=== PATIENT | male | born 1980 | race Caucasian/White ===

== ENCOUNTER 2017-11-12 23:37 | Emergency (ER) | payer OTHER ==
[~2017-11-12] VITALS: Ht 172.7 cm; Wt 71.7 kg
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
[2017-11-13] MEDS ORDERED: LIDOCAINE HCL 2% 20 ML VIAL TP ONE (00:15)
[2017-11-13] MEDS ORDERED: SODIUM BICARBONATE 4.2 % (NEUT) 5 ML VIAL TP ONE (00:15)
[2017-11-13] MEDS ORDERED: HYDROCODONE/APAP 5-325MG TABLET PO ONE (00:15)
[2017-11-13] MEDS ORDERED: NEOMY/BACITRA/POLYMYXIN B OINT UD PACKET TP ONE ×2 (00:15→00:33)
[2017-11-13] MEDS ORDERED: TDAP DIPH,PERTUSS,TET VAC/PF 0.5 ML DISP.SYRIN IM ONE ×2 (00:15→00:31)
--- NOTE | 2017-11-13 00:15 | NUR ---
Dr. Tay at bedside for MSE.
[2017-11-13] MEDS ORDERED: SODIUM BICARBONATE 4.2 % (NEUT) 5 ML VIAL ONE (00:32)
[2017-11-13] MEDS ORDERED: HYDROCODONE/APAP 5-325MG TABLET ONE (00:32)
[2017-11-13] MEDS ORDERED: LIDOCAINE HCL 2% 20 ML VIAL ONE (00:33)
--- NOTE | 2017-11-13 01:10 | NUR ---
Xray at bedside.
[2017-11-13] MEDS ORDERED: SULFAMETH/TRIMETH 800/160 MG TABLET PO ONE (02:30)
[2017-11-13] MEDS ORDERED: SULFAMETH/TRIMETH 800/160 MG TABLET ONE (02:36)
--- NOTE | 2017-11-13 03:00 | NUR ---
Patient discharged to home in stable conditon. Written and verbal after care instructions given. Patient verbalizes understanding of instructions. Pt ambulated out of ER with steady gait, no acute signs of distress, VSS, all belongings taken.
[2017-11-13 03:14] VITALS: BP 142/89
== END 2017-11-13 03:00 | disposition home or self-care (01) ==
LOC: ER 23:40 → EDSEX 23:40 → ER 11-13 03:00
DX: S51.812A Laceration without foreign body of left forearm, initial encounter (principal); W22.8XXA Striking against or struck by other objects, initial encounter; Y93.89 Activity, other specified; Y92.89 Other specified places as the place of occurrence of the external cause; Y99.8 Other external cause status
CPT/HCPCS: 73090; 90715; A4217; A4663; J3490